=== PATIENT | female | born 2000 | race Caucasian/White ===

== ENCOUNTER 2025-02-20 18:28 | Emergency (ER) | payer BC, SELFPAY ==
--- NOTE | ~2025-02-20 | XR_ITS ---
EXAMINATION: XR chest 2V Exam Date/Time: 02/20/2025 18:55 CDT HISTORY: elevated heart rate Comparison: 09/12/2004. RESULT: Lines, tubes, and devices: None. Lungs and pleura: Clear. Cardiomediastinal silhouette: Stable. Other: No acute osseous or upper abdominal finding. IMPRESSION: No acute cardiopulmonary process. Reviewed, dictated and finalized at location K.
--- NOTE | ~2025-02-20 | CT_ITS ---
EXAMINATION: CT abdomen pelvis w con DATE: 02/20/2025 21:48 INDICATION: vomiting/diarrhea TECHNIQUE: Computed tomography (CT) of the abdomen and pelvis was performed with 100 mL Omnipaque-350 intravenous contrast. Automated exposure control and iterative reconstruction technique were employe d. The dose-length product was 294.34 mGy-cm. COMPARISON: 01/29/2017. FINDINGS: Lower thorax: Unremarkable Liver: Normal. Biliary/Gallbladder: Gallbladder is normal. No bile duct dilation. Pancreas: No mass or duct dilation. Spleen: Normal. Adrenals:No mass. Kidneys: No suspicious mass, obstructing stone, or hydronephrosis. Punctate nonobstructing right lowe r pole calcifications GI tract: Mild distal esophageal wall edema. Fluid-filled colon. No small or large bowel dilation. Hy peremia of the mid and distal appendiceal wall, without dilation or significant surrounding inflammat ory change. Mesentery/Peritoneum: No ascites, mass, or free air. Retroperitoneum: No mass. Pelvis: Pelvic organs are within normal limits. Soft Tissues: Soft tissues and body wall unremarkable. Bones: No acute osseous finding. IMPRESSION: Mild esophagitis. Hyperemia of the appendix, which could represent mild/early appendicitis in the appropriate clinical context. Fluid-filled colon as can be seen with diarrheal illness. Reviewed, dictated and finalized at location K.
[2025-02-20 18:33] VITALS: BP 114/74; PULSE 140; RESP 18; TEMP 36.2; O2SAT 100
--- NOTE | 2025-02-20 18:39 | ECG_ITS ---
Test Date: 2025-02-20 20:23:34 Measurements Intervals Benedict Rate: 121 P: 50 SC: 140 QRS: 52 QRSD: 68 T: 29 QT: 294 QTc: 418 Interpretive Statements SINUS TACHYCARDIA NONSPECIFIC T-WAVE ABNORMALITY ABNORMAL RHYTHM ECG No previous ECG available for comparison Electronically Signed On 02-21-2025 16:02:30 CDT by Arias Hendrickson M.D.
--- NOTE | 2025-02-20 18:40 | ED_ITS ---
HPI - Nausea/Vomiting/Diarrhea General Chief complaint: Nausea/Vomiting/Diarrhea <Chela Bean APRN - Last Filed: 02/20/25 18:42> Stated complaint: vomiting, diarrhea <Chela Bean APRN - Last Filed: 02/20/25 18:42> Time Seen by Provider: 02/20/25 18:40 <Chela Bean APRN - Last Filed: 02/20/25 18:42> Focused HPI: Patient is a 24-year-old female who presents to the ER with a one-day history of vomiting, diarrhea, chills. She denies any recent sick contacts. Patient denies any pertinent medical history relevant to this ER visit. She is very tachycardic upon time of examination. GENERAL: Well-appearing, well-nourished, and in mild distress d/t nausea. HEAD: Normocephalic, atraumatic. CHEST: Clear to auscultation. ?No respiratory distress. HEART: Tachycardia and rhythm.? NEURO: ?Alert and oriented x3. Patient screened in triage and initial orders placed.? ?Additional care and disposition to be based upon?diagnostic testing and treatment. <Chela Bean APRN - Last Filed: 02/20/25 18:42> History of Present Illness HPI Narrative: Agree with HPI. Sudden onset diarrheal illness with vomiting. Works at a [employer] as a nurse. <Ivan Bean MD - Last Filed: 02/20/25 23:01> Related Data Allergies/Adverse reactions: Allergies Allergy/AdvReac Type Severity Reaction Status Date / Time NKDA Allergy Mild Unknown Uncoded 02/20/25 18:29 <Chela Bean APRN - Last Filed: 02/20/25 18:42> Review of Systems 2 Review of Systems: All systems reviewed & are unremarkable except as noted in HPI and below <Ivan Bean MD - Last Filed: 02/20/25 23:01> Constitutional: Constitutional: Reports no additional constitutional complaints <Ivan Bean MD - Last Filed: 02/20/25 23:01> Cardiovascular: Cardiovascular: Reports no additional cardiovascular complaints <Ivan Bean MD - Last Filed: 02/20/25 23:01> Respiratory: Respiratory: Reports no additional respiratory complaints < Ivan Bean MD - Last Filed: 02/20/25 23:01> Gastrointestinal: Gastrointestinal: Reports no additional gastrointestinal complaints <Ivan Bean MD - Last Filed: 02/20/25 23:01> PMFSH Past Medical History Medical History: Medical History (Updated 02/20/25 @ 22:58 by Ivan Bean MD) Healthy female adult <Chela Bean, EXTENSION SERVICE AGENT - Last Filed: 02/20/25 18:42> Surgical History Surgical History: Surgical History (Updated 02/20/25 @ 22:55 by Ivan Bean MD) No pertinent past surgical history <Chela Bean APRN - Last Filed: 02/20/25 18:42> Exam 2 Narrative: GENERAL: Ill-appearing, well-nourished, and in no acute distress. HEAD: Normocephalic, atraumatic. ENT: Mucous membranes moist. CHEST: Clear to auscultation. No respiratory distress. HEART: Tachycardic regular. Normal peripheral pulses. ABDOMEN: Soft, nontender, nondistended. EXTREMITIES: Normal range of motion. No edema. SKIN: Warm, dry, no rash. NEURO: Alert and oriented x3. PSYCH: Normal mood and affect. <Ivan Bean MD - Last Filed: 02/20/25 23:01> Course Course Emergency Course: Patient looks much better after IV fluid. Still with some sinus tachycardia. Repeat exam the abdomen is soft nontender. No right lower quadrant tenderness. Discussed CT imaging as well as labs. Offered admission for observation but patient is feeling better and feels comfortable going home and observing to see if her symptoms worsen. <Ivan Bean MD - Last Filed: 02/20/25 23:01> Vital Signs Vital signs: Vital Signs Temperature 97.2 F L 02/20/25 18:33 Pulse Rate 140 H 02/20/25 18:33 Respiratory Rate 18 02/20/25 18:33 Blood Pressure 114/74 02/20/25 18:33 Pulse Oximetry 100 02/20/25 18:33 Oxygen Delivery Room Air 02/20/25 18:33 Temperature 97.4 F L 02/20/25 19:57 Pulse Rate 115 H 02/20/25 21:33 Respiratory Rate 20 02/20/25 21:33 Blood Pressure 117/72 02/20/25 21:33 Pulse Oximetry 100 02/20/25 21:33 Oxygen Delivery Room Air 02/20/25 18:33 <Chela Bean APRN - Last Filed: 02/20/25 18:42> Vital Signs Temperature 97.2 F L 02/20/25 18:33 Pulse Rate 140 H 02/20/25 18:33 Respiratory Rate 18 02/20/25 18:33 Blood Pressure 114/74 02/20/25 18:33 Pulse Oximetry 100 02/20/25 18:33 Oxygen Delivery Room Air 02/20/25 18:33 Temperature 97.4 F L 02/20/25 19:57 Pulse Rate 115 H 02/20/25 21:33 Respiratory Rate 20 02/20/25 21:33 Blood Pressure 117/72 02/20/25 21:33 Pulse Oximetry 100 02/20/25 21:33 Oxygen Delivery Room Air 02/20/25 18:33 <Ivan Bean MD - Last Filed: 02/20/25 23:01> MDM - Nausea/Vomiting/Diarrhea Lab Data Result diagrams: 02/20/25 19:33 02/20/25 19:33 <Chela Bean APRN - Last Filed: 02/20/25 18:42> Labs: Lab Results 02/20/25 02/20/25 02/20/25 Range/Units 19:33 21:13 21:14 WBC 21.0 H (4.5-10.0) K/mm3 RBC 5.81 H (4.2-5.4) M/mm3 Hgb 17.9 H (12.0-15.0) g/dL Hct 53.0 H (37.0-47.0) % MCV 91.2 (80-100) fl MCH 30.8 (26-34) pg MCHC 33.8 (32-36) g/dl RDW 12.5 (11.5-14.5) % Plt Count 360 (150-375) k/mm3 MPV 10.2 (7.4-10.4) fl Immature Gran % (Auto) Not Reportable Neut % (Auto) Not Reportable Lymph % (Auto) Not Reportable [place] % (Auto) Not Reportable Eos % (Auto) Not Reportable Baso % (Auto) Not Reportable Lymph # (Auto) Not Reportable [place] # (Auto) Not Reportable Eos # (Auto) Not Reportable Baso # (Auto) Not Reportable Abs Immat Gran (auto) Not Reportable Absolute Neuts (auto) Not Reportable Absolute Nucleated RBC Not Reportable Total Counted 100 Neutrophils % (Manual) 90 H (46-73) % Band Neutrophils % 3 (0-6) % Lymphocytes % (Manual) 3.0 L (18-44) % Monocytes % (Manual) 4 (3-9) % Nucleated RBC % Not Reportable Abs Neuts (Manual) 19.53 H (1.7-7.2) K/mm3 Abs Lymphs (Manual) 0.63 L (1.1-4.5) K/mm3 Abs Monocytes (Manual) 0.84 (0.1-0.90) K/mm3 Platelet Estimate Adequate (Adequate) Clumped Platelets Present Schistocytes None seen PT 13.1 (11.1-14.7) Seconds INR 0.9 APTT 26.3 (22.3-36.8) Seconds Sodium 141 (137-145) mmol/L Potassium 3.9 (3.4-5.0) mmol/L Chloride 101 (98-107) mmol/L Carbon Dioxide 19 L (22-30) mmol/L Anion Gap 21 H (4-12) mmol/L BUN 15 (7-17) mg/dL Creatinine 0.97 (0.7-1.0) mg/dL Estim Creat Clear Calc 65 ml/min Estimated GFR > 60 (59 - ) Glucose 115 H (65-110) mg/dL Lactic Acid 2.3 H (0.7-2.0) mmol/L Calcium 11.0 H (8.4-10.2) mg/dL Total Bilirubin 1.2 (0.2-1.3) mg/dL AST 28 (14-36) U/L ALT 30 (6-35) U/L Alkaline Phosphatase 96 (38-126) U/L Troponin I < 0.012 (0.000-0.034) ng/mL C-Reactive Protein 0.5 (<1.0) mg/dL Total Protein 11.0 H (6.3-8.2) g/dL Albumin 5.9 H (3.5-5.1) g/dL Urine Color Yellow (Yellow) Urine Appearance Clear (Clear) Urine pH 5.5 (5.0-9.0) Ur Specific [place] 1.019 (1.001-1.035) Urine Protein 1+ H (Negative) mg/dL Urine Glucose (UA) Negative (Negative) mg/dL Urine Ketones 1+ H (Negative) mg/dL Ur Blood (Man) Negative (Negative) Urine Nitrate Negative (Negative) Urine Bilirubin Negative (Negative) Urine Urobilinogen 0.2 (<2.0) mg/dL Leukocyte Esterase Rfl Negative (Negative) MYRANDA/UL Urine RBC 0-2 (0-2) /hpf Urine WBC 0-5 (0-3) /hpf Ur Squamous Epith Cells None seen (Few) /hpf Urine Bacteria None seen /hpf Urine Casts >20 Hyaline Casts Present (None) /lpf POC Urine HCG, Qual Negative (Negative) Influenza A (RT-PCR) Negative (Negative) Influenza B (RT-PCR) Negative (Negative) RSV (RT-PCR) Negative (Negative) SARS-CoV-2 RNA (RT-PCR) Negative (Negative) <Chela Bean, EXTENSION SERVICE AGENT - Last Filed: 02/20/25 18:42> Lab Results 02/20/25 02/20/25 02/20/25 Range/Units 19:33 21:13 21:14 WBC 21.0 H (4.5-10.0) K/mm3 RBC 5.81 H (4.2-5.4) M/mm3 Hgb 17.9 H (12.0-15.0) g/dL Hct 53.0 H (37.0-47.0) % MCV 91.2 (80-100) fl MCH 30.8 (26-34) pg MCHC 33.8 (32-36) g/dl RDW 12.5 (11.5-14.5) % Plt Count 360 (150-375) k/mm3 MPV 10.2 (7.4-10.4) fl Immature Gran % (Auto) Not Reportable Neut % (Auto) Not Reportable Lymph % (Auto) Not Reportable [place] % (Auto) Not Reportable Eos % (Auto) Not Reportable Baso % (Auto) Not Reportable Lymph # (Auto) Not Reportable [place] # (Auto) Not Reportable Eos # (Auto) Not Reportable Baso # (Auto) Not Reportable Abs Immat Gran (auto) Not Reportable Absolute Neuts (auto) Not Reportable Absolute Nucleated RBC Not Reportable Total Counted 100 Neutrophils % (Manual) 90 H (46-73) % Band Neutrophils % 3 (0-6) % Lymphocytes % (Manual) 3.0 L (18-44) % Monocytes % (Manual) 4 (3-9) % Nucleated RBC % Not Reportable Abs Neuts (Manual) 19.53 H (1.7-7.2) K/mm3 Abs Lymphs (Manual) 0.63 L (1.1-4.5) K/mm3 Abs Monocytes (Manual) 0.84 (0.1-0.90) K/mm3 Platelet Estimate Adequate (Adequate) Clumped Platelets Present Schistocytes None seen PT 13.1 (11.1-14.7) Seconds INR 0.9 APTT 26.3 (22.3-36.8) Seconds Sodium 141 (137-145) mmol/L Potassium 3.9 (3.4-5.0) mmol/L Chloride 101 (98-107) mmol/L Carbon Dioxide 19 L (22-30) mmol/L Anion Gap 21 H (4-12) mmol/L BUN 15 (7-17) mg/dL Creatinine 0.97 (0.7-1.0) mg/dL Estim Creat Clear Calc 65 ml/min Estimated GFR > 60 (59 - ) Glucose 115 H (65-110) mg/dL Lactic Acid 2.3 H (0.7-2.0) mmol/L Calcium 11.0 H (8.4-10.2) mg/dL Total Bilirubin 1.2 (0.2-1.3) mg/dL AST 28 (14-36) U/L ALT 30 (6-35) U/L Alkaline Phosphatase 96 (38-126) U/L Troponin I < 0.012 (0.000-0.034) ng/mL C-Reactive Protein 0.5 (<1.0) mg/dL Total Protein 11.0 H (6.3-8.2) g/dL Albumin 5.9 H (3.5-5.1) g/dL Urine Color Yellow (Yellow) Urine Appearance Clear (Clear) Urine pH 5.5 (5.0-9.0) Ur Specific [place] 1.019 (1.001-1.035) Urine Protein 1+ H (Negative) mg/dL Urine Glucose (UA) Negative (Negative) mg/dL Urine Ketones 1+ H (Negative) mg/dL Ur Blood (Man) Negative (Negative) Urine Nitrate Negative (Negative) Urine Bilirubin Negative (Negative) Urine Urobilinogen 0.2 (<2.0) mg/dL Leukocyte Esterase Rfl Negative (Negative) MYRANDA/UL Urine RBC 0-2 (0-2) /hpf Urine WBC 0-5 (0-3) /hpf Ur Squamous Epith Cells None seen (Few) /hpf Urine Bacteria None seen /hpf Urine Casts >20 Hyaline Casts Present (None) /lpf POC Urine HCG, Qual Negative (Negative) Influenza A (RT-PCR) Negative (Negative) Influenza B (RT-PCR) Negative (Negative) RSV (RT-PCR) Negative (Negative) SARS-CoV-2 RNA (RT-PCR) Negative (Negative) <Ivan Bean MD - Last Filed: 02/20/25 23:01> Imaging Data Radiologist's impression: ITS Impressions Chest X-Ray 02/20/25 19:56 IMPRESSION: No acute cardiopulmonary process. Abdomen/Pelvis CT 02/20/25 22:21 IMPRESSION: Mild esophagitis. Hyperemia of the appendix, which could represent mild/early appendicitis in the appropriate clinical context. Fluid-filled colon as can be seen with diarrheal illness. <Ivan Bean MD - Last Filed: 02/20/25 23:01> ECG Data EKG #1: ECG completion date: 02/20/25 <Ivan Bean MD - Last Filed: 02/20/25 23:01> ECG completion time: 20:23 <Ivan Bean MD - Last Filed: 02/20/25 23:01> EKG Interpretation: tachycardia (121), sinus rhythm, no ectopy, normal QRS and normal QT <Ivan Bean MD - Last Filed: 02/20/25 23:01> Discharge Plan Discharge Clinical Impression: Gastroenteritis <Chela Bean APRN - Last Filed: 02/20/25 18:42> Patient Disposition: Home, Self-Care <Chela Bean APRN - Last Filed: 02/20/25 18:42> Condition: Stable <Chela Bean APRN - Last Filed: 02/20/25 18:42> Instructions: Gastroenteritis (ED) <Chela Bean APRN - Last Filed: 02/20/25 18:42> Additional Instructions: Please drink plenty of fluids at home. Return to the emergency department if you develop high fevers, have persistent severe abdominal pain, or have bloody stools or vomit, as these could be signs of a more serious medical emergency. Return to the emergency department if you are unable to keep down liquids because of severe nausea/vomiting. Additionally if you develop pain in the right lower quadrant of your abdomen you should return for evaluation possible appendicitis. <Chela Bean APRN - Last Filed: 02/20/25 18:42> Patient Language: Russian <Chela Bean APRN - Last Filed: 02/20/25 18:42> Prescriptions: New ondansetron 4 mg tablet,disintegrating 4 mg PO Q6H PRN (Reason: nausea and vomiting) Qty: 10 0RF <Chela Bean APRN - Last Filed: 02/20/25 18:42> Follow-up/Referrals: UNKNOWN,DOCTOR [Primary Care Provider] - 1 Week <Chela Bean APRN - Last Filed: 02/20/25 18:42>
--- OUTSIDE RECORDS SUMMARY | 2025-02-20 19:06 | XMS_ITS | Clinical Summary ---
Author Organization [facility] Address [address] [place] [address] Care Team Providers Care In Home Baby Sitter Name Role Phone Juwan Wilks MD Unavailable [phone] Juwan Wilks MD Primary Care Provider [phone] Source Comments [facility],non-owned Affiliates and Associated Physician Practices is amultiple site organization consisting of ambulatory clinics and hospital sitesin [place], [place], [place] and [place]. This disclosure is being madepursuant to the Care Everywhere program and may not contain all information available regarding this patient. Last updated 18.[facility] Allergies No known active allergies Medications * Be aware that medications may not be up to date on this document. Alwaysverify current medications with the patient. Medication Sig Dispensed Refills Start Date End Date Status TRINESSA, 28, tablet TAKE 1 TABLET BY MOUTH EVERY DAY 28 Tab 6 01/19/2017 Active ketoconazole (NIZORAL) 2 % cream Apply 2 Squirts to affected area 3 times daily 0 06/06/2017 Active TRI-SPRINTEC tablet TAKE 1 TABLET BY MOUTH EVERY DAY 28 tablet 11 12/16/2018 Active Active Problems Problem Noted Date Diagnosed Date Herpes simplex vulvovaginitis 2017 Overview (03/18/2017): Valtrex prn Nephrolithiasis 02/24/2017 Overview (03/18/2017): 01/29/10 Right. Extracorporeal shock wave lithotripsy [facility]. Right ureteral stent. 03/07/10 [facility] : Cystoscopy with removal of stint 01/29/17 [facility]: Three calyceal stones right kidney 03/09/17 Referred to Urology Well child visit 09/09/2011 Overview (11/02/2017): 11 yo 11/09/11 14 yo 08/15/14 16 yo 09/01/16 17 yo 11/02/17 Resolved Problems Problem Noted Date Diagnosed Date Resolved Date UTI (urinary tract infection) 02/24/2017 03/10/2017 Overview (02/24/2017): 11/01/15 TMP/SMX (E. Coli) 01/03/17 Macrobid 01/29/17 TMP/SMX (E. Coli) - [facility] 02/24/17 Macrobid Acute pharyngitis 09/09/2011 02/24/2017 GERD (gastroesophageal reflux disease) 01/08/2010 02/24/2017 Overview (01/14/2010): 01/08/10 Prevacid 15 mg qd Immunizations Name Administration Dates Next Due DTaP VACCINE IM (6wk-6yrs) 06/27/2005,,2000,07/13,2000 HEP A PEDS 2 DOSE 06/25/2017 HEP B VACCINE, PED/ADOL 06/29/2001,2000, HIB BOOSTER 06/29/2001,2000,2000 Human Papilloma Virus [place] lent Vaccine 11/02/2017,06/25/2017 INFLUENZA VACCINE, QUADR. (F LUZONE; FLULAVAL; FLUARIX; AFLURIA QUADRIVALENT; 6MO+), 0.5 ML (IIV4) 11/02/2017 MENINGOCOCCAL CONJUGATE (MCV4P) 09/01/2016 MMR 06/27/2005,04/06/2001 PNEUMOCOCCAL CONJ, PEDS 04/06/2001 POLIO IPV 07/24/2004, 1,2000,05/11 PPD 07/24/2004 TDAP (7yrs+) 09/09/2011 VARICELLA 09/09/2011,08/23/2001 Social History Tobacco Use Types Packs/Day Years Used Date Smoking Tobacco: Never Smokeless Tobacco: Never Alcohol Use Standard Drinks/Week Comments No 0 (1 standard drink = 0.6 oz pur e alcohol) Sex and Gender Information Value Date Recorded Sex Assigned at Not on file Gender Identity Not on file Sexual Orientation Not on file Last Filed Vital Signs Vital Sign Reading Time Taken Comments Blood Pressure 110/60 11/02/2017 3:35 PM RESERVATION AGENT Pulse 112 02/26/2017 11:47 AM CDT Temperature 38.1 C (100.5 F) 07/22/2018 2:16 PM CDT Respiratory Rate 24 02/26/2017 11:47 AM CDT Oxygen Saturation 97% 02/26/2017 11:47 AM CDT Inhaled Oxygen Concentration - - Weight 48.3 kg (106 lb 6.4 oz) 07/22/2018 2:16 P M CDT Height 159.4 cm (5' 2.75 ) 11/02/2017 3:35 PM CS T Body Mass Index - - Plan of Treatment Health Maintenance Due Date Last Done Comments PAP SMEAR 2000 HIV SCREENING 2015 HPV VACCINE (3 - 3-dose series) 01/25/2018 11/02/2017, 06/25/2017 CHLAMYDIA/GONORRHEA SCREENING 02/26/2018 02/26/2017 HEPATITIS C SCREENING 03/05/2018 DTAP/TDAP/TD VACCINES (7 - Td or Tdap) 09/09/2021 09/09/2011, 06/27/2005, 06/29/2001, Additional history exists COVID-19 VACCINE ( season) 2024 INFLUENZA VACCINE (#1) 2024 11/02/2017 DEPRESSION SCREENING 11/30/2024 ZOSTER VACCINE (1 of 2) 2050 PNEUMOCOCCAL VACCINE Aged Out 04/06/2001 No long er eligible based on patient's age to complete this topic HEPATITIS B VACCINE Completed 06/29/2001, 2000, 2000 HIB VACCINE Completed 06/29/2001, 06/30, 2000 MENINGOCOCCAL GROUPS A/C/Y/W VACCINE Completed 09/01/2016 MENINGOCOCCAL (Group B) VACCINE SHARED DECISION-MAKING Aged Out No longer eligible based on patient's age to complete this topic Goals Goal Patient Goal Type Associated Problems Recent Progress Patient-Stated? Author Use safety retraint in car Lifestyle On track( 017 4:16 PM RESERVATION AGENT) No Nanci Martinez MA Procedures Procedure Name Priority Date/Time Associated Diagnosis Comments CHLAMYDIA + GC AMPLIFIED PROBE STAT 02/26/2017 11:15 AM CDT from Last 3 Months or Most Recently Relevant to Health Maintenance Results * CHLAMYDIA + GC AMPLIFIED PROBE (02/26/2017 11:15 AM CDT) Chlamydia Amplified Probe Negative Negative 02/27/2017 11:40 AM CDT [facility] GC Amplified Probe Negative Negative 02/27/2017 11:40 AM CDT [facility] Microbiology URINE / Unknown 02/26/2017 1 1:15 AM CDT 02/26/2017 11:22 AM CDT Narrative [facility] - 02/27/2017 11:40 AM CDT This test was developed and its performance characteristics determined by the [facility], [facility]. Female urine specimens tested by the [facility] have not been cleared or approved by the U.S. Food and Drug Administration (FDA). The laboratory is regulated under the Clinical Laboratory Improvement Amendments (CLIA) as qualified to perform high-complexity testing. This test is used for clinical purposes. It should not be regarded as investigational or for research. Results based on detection/no detection of ribosomal RNA by amplified method. Adrian Jimenez MD LAB - MICROBIOLOGY ORDERABLES [facility] [address] [place] [address], [facility] [phone] from Last 3 Months or Most Recently Relevant to Health Maintenance Care Teams In Home Baby Sitter Relationship Specialty Start Date End Date Juwan Wilks MD PCP - Pediatrics 01/08/10 Juwan Wilks MD [address] [address] PCP - General 02/05/10
--- OUTSIDE RECORDS SUMMARY | 2025-02-20 19:06 | XMS_ITS | Clinical Summary ---
Author Organization [facility] Address [address] [place] [address] Care Team Providers Care Pediatric Rn Name Role Phone Sohail [place] MD Primary Care Provider [phone] Allergies No known active allergies Medications No known medications Active Problems No known active problems Immunizations Name Administration Dates Next Due MODERNA COVID-19 (12+) MRNA, LNP-S, PF, 100 MCG/ 0.5 ML DOSE 01/10/2021,12/13/2020 Family History Medical History Relation Comments No Known Problems Maternal Aunt No Known Problems Maternal Grandmother No Known Problems Maternal Uncle No Known Problems Paternal Aunt No Known Problems Paternal Grandfather Breast Cancer Paternal Grandmother No Known Problems Paternal Uncle Relation Status Comments Father Alive Maternal Aunt Maternal Grandmother Maternal Uncle Mother Alive Paternal Aunt Paternal Grandfather Paternal Grandmother Paternal Uncle Social History Tobacco Use Types Packs/Day Years Used Date Smoking Tobacco: Never Smokeless Tobacco: Never Tobacco Cessation:Counseling Given: No Alcohol Use Standard Drinks/Week Comments Yes 0 (1 standard drink = 0.6 oz pur e alcohol) occasional AUDIT-C Answer Date Recorded Q1: How often do you have a drink containing alc ohol? Never 03/14/2021 Average Number of Drinks Not on file 021 Frequency of Binge Drinking Not on file 02/28 PHQ-2 Answer Date Recorded PHQ-2 Score - If the patient scores above 3, please move on to questions 3-9 0 05/14/2021 Comments No Sex and Gender Information Value Date Recorded Sex Assigned at Not on file Legal Sex Female 12:09 PM COPY HOLDER Gender Identity Not on file Sexual Orientation Not on file Last Filed Vital Signs Vital Sign Reading Time Taken Comments Blood Pressure 119/70 10/19/2022 12:19 PM COPY HOLDER Pulse 102 10/19/2022 12:19 PM COPY HOLDER Temperature 36.6 C (97.9 F) 10/19/2022 12:19 PM COPY HOLDER Respiratory Rate 16 10/19/2022 12:19 PM COPY HOLDER Oxygen Saturation 98% 10/19/2022 12:19 PM COPY HOLDER Inhaled Oxygen Concentration - - Weight 52.2 kg (115 lb) 10/19/2022 12:19 PM COPY HOLDER Height 160 cm (5' 3 ) 10/19/2022 12:19 PM COPY HOLDER Body Mass Index 20.37 10/19/2022 12:19 PM COPY HOLDER Plan of Treatment Health Maintenance Due Date Last Done Comments Cervical Cancer Screening Pap Smear (Age 21 to 29) Every 3 Years 2000 Cervical Cancer Screening 2000 Annual Physical 2003 HPV Vaccines (3 - 3-dose series) 01/25/2018 11/02/2017, 06/25/2017 Hepatitis C 2018 DTaP, Tdap and Td Vaccines (7 - Td or Tdap) 09/09/2021 09/09/2011, 06/27/2005, 06/29/2001, Additional history exists COVID-19 Vaccine ( season) 2024 01/10/2021, 12/13/2020 Influenza Adult (#1) 2024 08/28/2020, 11/02/2017, 08/02/2017 Hepatitis B Vaccines Completed 06/29/2001, 2000, 2000 Meningococcal Vaccine Completed 09/01/2016 Meningococcal B Vaccine Aged Out No l onger eligible based on patient's age to complete this topic Pneumococcal Vaccine: Pediatrics (0 to 5 Years) and At-Risk Patients (6 to 64 Years) Aged Out No longer eligible based on patient's age to complete this topic RSV Immunizations Under 20 Months Aged Out No longer eligible based on patient's age to complete this topic Insurance [address] [address] Care Teams Pediatric Rn Relationship Specialty Start Date End Date Sohail [place] MD [address] [place] [address] [place] [address] PCP - General FAMILY PRACTICE 03/21/21
--- OUTSIDE RECORDS SUMMARY | 2025-02-20 19:07 | XMS_ITS | Encounter Summary ---
Author Organization [facility] Address [address] [place] [address] Phone Care Team Providers Care Vegetable Specker Name Role Phone Kaci Nunes Primary Care Provider [phone] Loretta Yanes MD Unavailable [phone] Encounter Details Date Type Department Care Team (Late st Contact Info) Description 10/28/2018 Telephone [facility] [employer] [facility] - [facility] Urology [address] [facility] [address]th [place] [address] [place] [address] Renetta Noble Social History Tobacco Use Types Packs/Day Years Used Date Smoking Tobacco: Never Smokeless Tobacco: Never Alcohol Use Standard Drinks/Week Comments No 0 (1 standard drink = 0.6 oz pur e alcohol) Comments Unknown Sex and Gender Information Value Date Recorded Sex Assigned at Not on file Legal Sex Female 7:19 PM CDT Gender Identity Not on file Sexual Orientation Not on file documented as of this encounter Plan of Treatment Not on file documented as of this encounter Visit Diagnoses Not on filedocumented in this encounter Care Teams Vegetable Specker Relationship Specialty Start Date End Date Kaci Nunes PA [address] [place] [id number] PCP - General Gastroenterology 08/18/18 Loretta Yanes MD [address] [facility] [place] [address] 08/18/18 documented as of this encounter
--- OUTSIDE RECORDS SUMMARY | 2025-02-20 19:07 | XMS_ITS | Clinical Summary ---
Author Organization [facility] Address [address] [place] [address] Care Team Providers Care Wood Carver Hand Name Role Phone Kaci Nunes Primary Care Provider [phone] Loretta Yanes MD Unavailable Allergies No known active allergies Medications norgestimate-et hinyl estradiol (OPF-EZ-DZRXZLX C ORAL) Take 1 tablet by mouth nightly. control Active acetaminophen (TYLENOL) 500 mg tablet Take 1 tablet (500 mg total) by mouth every 6 (six) hours as needed for pain. 8 Active Additional Information Patient not taking.Reported on 04/10/2021 ibuprofen (ADVIL,MOTRIN) 600 mg tablet Take 1 tablet (600 mg total) by mouth every 6 (six) hours as needed for pain. 8 Active Additional Information Patient not taking.Reported on 04/10/2021 oxyCODONE (ROXICODONE) 5 mg immediate release tabletIndicatio ns:Pain Take 1 tablet (5 mg total) by mouth every 6 (six) hours as needed for pain. 10 tablet 8 Active Additional Information Patient not taking.Reported on 04/10/2021 tamsulosin (FLOMAX) 0.4 mg extended release capsule Take 1 capsule (0.4 mg total) by mouth daily. For stent pain 10 capsule 1 8 Active Additional Information Patient not taking.Reported on 04/10/2021 valACYclovir (VALTREX) 500 mg tablet Take 500 mg by mouth daily 1 Active Lo Loestrin Fe 1 mg-10 mcg (24)/10 mcg (2) tablet Take 1 tablet by mouth daily 1 Active cephalexin (KEFLEX) 500 mg capsule 1 Active Active Problems Problem Noted Date Diagnosed Date Nephrolithiasis 11/02/2018 Overview (11/02/2018): Added automatically from request for surgery [id number] Surgical History Surgery Date Site/Laterality Comments KIDNEY STONE SURGERY 2018,(x2), 2017 & 2010 Right 4 surgeries since 2009 Medical History Medical History Date Comments Kidney stone Right Family History Medical History Relation Name Comments No Known Problems Father Cancer Maternal Grandmother No Known Problems Mother Nephrolithiasis Paternal Grandmother Relation Name Status Comments Father Maternal Grandmother Mother Paternal Grandmother Social History Tobacco Use Types Packs/Day Years Used Date Smoking Tobacco: Never Smokeless Tobacco: Never Alcohol Use Standard Drinks/Week Comments No 0 (1 standard drink = 0.6 oz pur e alcohol) Comments No Sex and Gender Information Value Date Recorded Sex Assigned at Not on file Legal Sex Female 7:19 PM CDT Gender Identity Not on file Sexual Orientation Not on file Obstetrics History Comments LMP: 09/2018 Last Filed Vital Signs Vital Sign Reading Time Taken Comments Blood Pressure 104/64 04/10/2021 6:43 PM CDT Pulse 81 04/10/2021 6:43 PM CDT Temperature 36.8 C (98.2 F) 04/10/2021 6:43 PM CDT Respiratory Rate 16 04/10/2021 6:43 PM CDT Oxygen Saturation 99% 04/10/2021 6:43 PM CDT Inhaled Oxygen Concentration - - Weight 52.2 kg (115 lb) 04/10/2021 6:43 PM CDT Height 160 cm (5' 3 ) 04/10/2021 6:43 PM CDT Body Mass Index 20.37 04/10/2021 6:43 PM CDT Plan of Treatment Not on file Medical Devices Explanted Type Area Openstack Cloud Consulting Architect Device Identifier Shelf Expiration Date Model / Serial / Lot [employer] Garry [id number] 4.8fr 22cm Large Inner Lumen Low Profile Bladder Elder Taper Tip Latex Free - [id number] Implanted:Qty: 1 on 11/16/2018 by Connie Perez MD at [facility] Explanted:Qty: 1 on 11/25/2018 by Connie Perez MD Stent Right: Ureter [employer] Garry [id number] 07/04/2021 [id number] / / [id number] Insurance ANTHEM ACCESS [employer] OOS Care Teams Wood Carver Hand Relationship Specialty Start Date End Date Kaci Nunes PA [address] [place] [address] PCP - General Gastroenterology 08/18/18 Loretta Yanes MD [address] [place] [address] 08/18/18
--- OUTSIDE RECORDS SUMMARY | 2025-02-20 19:07 | XMS_ITS | Clinical Summary ---
Author Organization [facility] Address [address] [place] [address] Phone Care Team Providers Care Sash Repairer Name Role Phone Sohail Duarte MD Primary Care Provider Allergies No known active allergies Medications TRINESSA, 28, 0.18/0.215/0.25 mg-35 mcg (28) tablet TK 1 T PO QD 11 02/15/2017 Active Active Problems Problem Noted Date Diagnosed Date Right kidney stone 03/13/2017 Constipation 03/13/2017 Immunizations Immunization Administration Dates Next Due Influenza Seasonal Unspecified Formulation IM Family History Medical History Relation Name Comments Healthy Father Healthy Mother Healthy Sister Relation Name Status Comments Father Alive Mother Alive Sister Alive Social History Tobacco Use Types Packs/Day Years Used Date Smoking Tobacco: Never Smokeless Tobacco: Never Alcohol Use Standard Drinks/Week Comments No 0 (1 standard drink = 0.6 oz pur e alcohol) Comments No Sex and Gender Information Value Date Recorded Sex Assigned at Not on file Legal Sex Female 2:36 PM CDT Gender Identity Not on file Sexual Orientation Not on file Last Filed Vital Signs Vital Sign Reading Time Taken Comments Blood Pressure 114/74 01/23/2020 1:05 PM PREFORMS LAMINATOR Pulse 97 01/23/2020 1:05 PM PREFORMS LAMINATOR Temperature 36.6 C (97.8 F) 01/23/2020 1:05 PM PREFORMS LAMINATOR Respiratory Rate 16 01/23/2020 1:05 PM PREFORMS LAMINATOR Oxygen Saturation 100% 01/23/2020 1:05 PM PREFORMS LAMINATOR Inhaled Oxygen Concentration - - Weight 50.3 kg (111 lb) 01/23/2020 1:05 PM PREFORMS LAMINATOR Height 160 cm (5' 3 ) 01/23/2020 1:05 PM PREFORMS LAMINATOR Body Mass Index 19.66 01/23/2020 1:05 PM PREFORMS LAMINATOR Plan of Treatment Health Maintenance Due Date Last Done Comments HPV VACCINES (3 - 3-dose series) 01/25/2018 11/02/2017, 06/25/2017 CERVICAL CANCER SCREENING 2021 PAP SMEAR 2021 PAP SMEAR 2021 DTAP/TDAP/TD VACCINES (7 - Td or Tdap) 09/09/2021 09/09/2011, 06/27/2005, 06/29/2001, Additional history exists INFLUENZA VACCINE (#1) 2024 11/02/2017, 2016 HEPATITIS B VACCINES Completed 06/29/2001, 2000, 2000 PNEUMOCOCCAL VACCINE 0-49 YEARS Aged Out No longer eligible based on patient's age to complete this topic Medical Devices Explanted Type Area Crook Operator Device Identifier Shelf Expiration Date Model / Serial / Lot Stent Uret Unvfsl [facility]-522-R [id number] - [id number] Implanted:Qty : 1 on 01/06/2018 by Sushant Villavicencio MD at [facility] Explanted:Qty : 1 on 01/20/2018 by Sushant Villavicencio MD at [facility] Stent Right: Ureter COOK- UROLOGY [id number] 08/26/2019 [id number] / / [id number] Stent Uret Unvfsl [facility]-522-R [id number] - [id number] Implanted:Qty : 1 on 01/20/2018 by Sushant Villavicencio MD at [facility] Explanted:Qty : 1 on 01/27/2018 by Sushant Villavicencio MD at [facility] Stent Right: Ureter COOK- UROLOGY [id number] 08/14/2020 [id number] / / [id number] Insurance RX [facility] [employer] RX FERRO PLANS (INTERNAL) [facility] Plans [employer] BLUE ACCESS/TRUE BLUE PPO [employer] BLUE ACCESS/TRUE BLUE PPO Advance Directives For more information, please contact: [phone] * Full Code (Latest Code Status on File) Date Activated Date Inactivated Comments 05/18/2018 10:10 AM 05/18/2018 4:55 PM * Full Code Date Activated Date Inactivated Comments 01/27/2018 11:58 AM 01/27/2018 4:25 PM * Full Code Date Activated Date Inactivated Comments 01/20/2018 3:09 PM 01/21/2018 10:39 AM * Full Code Date Activated Date Inactivated Comments 01/20/2018 12:28 PM 01/20/2018 3:09 PM * Full Code Date Activated Date Inactivated Comments 01/06/2018 3:51 PM 01/07/2018 12:28 PM Care Teams Sash Repairer Relationship Specialty Start Date End Date Sohail Duarte MD [address] [place] [address] [place] [address] PCP - General Family Practice 08/16/18
--- OUTSIDE RECORDS SUMMARY | 2025-02-20 19:07 | XMS_ITS | Referral Summary ---
Author Organization [facility] Address [address] [place] [address] Care Team Providers Care Fire Hazard Inspector Name Role Phone Kaci Nunes Primary Care Provider [phone] Loretta Yanes MD Unavailable Allergies No known active allergies Medications norgestimate-et hinyl estradiol (STI-XG-IFJCFLO C ORAL) Take 1 tablet by mouth [...] (11/02/2018): Added automatically from request for surgery [id number] Social History Tobacco Use Types Packs/Day Years [...] on file Medical Devices Explanted Type Area Charge Operator Device Identifier Shelf Expiration Date Model / Serial / Lot [employer] Garry [id number] 4.8fr 22cm Large Inner Lumen Low Profile Bladder Elder Taper Tip Latex Free - [id number] Implanted:Qty: 1 on 11/16/2018 by Connie Perez MD at [facility] Explanted:Qty: 1 on 11/25/2018 by Connie Perez MD Stent Right: Ureter [employer] Garry [id number] 07/04/2021 [id number] / / [id number] Insurance ANTHEM ACCESS BLUE ACCESS OOS Care Teams Fire Hazard Inspector Relationship Specialty Start Date End Date Kaci Nunes PA [address] [place] [id number] PCP - General Gastroenterology 08/18/18 Loretta Yanes MD [address] [place] [address] 08/18/18
[2025-02-20] MEDS: SODIUM CHLORIDE 0.9% IV 1,000 ML 999 ML IV CONT ×2 (19:28→19:29)
[2025-02-20] MEDS: ONDANSETRON INJ 4 MG/2 ML VIAL IV PUSH (19:49)
[2025-02-20 19:54] LABS: Hemoglobin 17.9 g/dL (12.0-15.0); Mean Corpuscular HGB Conc 33.8 g/dl (32-36); Mean Corpuscular Hemoglobin 30.8 pg (26-34); Mean Corpuscular Volume 91.2 fl (80-100); Mean Platelet Volume 10.2 fl (7.4-10.4); Platelet Count Result 360 k/mm3 (150-375); Red Blood Count 5.81 M/mm3 (4.2-5.4); Red Cell Distribution Width 12.5 % (11.5-14.5)
--- OUTSIDE RECORDS SUMMARY | 2025-02-20 19:55 | XMS_ITS | Clinical Summary ---
Author Organization [facility] Address [address] [place] [address] Care Team Providers Care Batter Mixer Helper Name Role Phone Sohail Duarte MD Primary Care Provider [phone] Allergies No known active allergies Medications No [...] on file Legal Sex Female 12:09 PM POCKET SETTER LOCKSTITCH Gender Identity Not on file Sexual Orientation Not on file Last Filed Vital Signs Vital Sign Reading Time Taken Comments Blood Pressure 119/70 10/19/2022 12:19 PM POCKET SETTER LOCKSTITCH Pulse 102 10/19/2022 12:19 PM POCKET SETTER LOCKSTITCH Temperature 36.6 C (97.9 F) 10/19/2022 12:19 PM POCKET SETTER LOCKSTITCH Respiratory Rate 16 10/19/2022 12:19 PM POCKET SETTER LOCKSTITCH Oxygen Saturation 98% 10/19/2022 12:19 PM POCKET SETTER LOCKSTITCH Inhaled Oxygen Concentration - - Weight 52.2 kg (115 lb) 10/19/2022 12:19 PM POCKET SETTER LOCKSTITCH Height 160 cm (5' 3 ) 10/19/2022 12:19 PM POCKET SETTER LOCKSTITCH Body Mass Index 20.37 10/19/2022 12:19 PM POCKET SETTER LOCKSTITCH Plan of Treatment Health Maintenance Due Date [...] patient's age to complete this topic Insurance [address] [place] [address] Care Teams Batter Mixer Helper Relationship Specialty Start Date End Date Sohail Duarte MD [address] [place] [address] [place] [address] PCP - General FAMILY PRACTICE 03/21/21
--- OUTSIDE RECORDS SUMMARY | 2025-02-20 19:55 | XMS_ITS | Clinical Summary ---
Author Organization [facility] Address [address] [place] [address] Care Team Providers Care Watch Hairspring Assembler Name Role Phone Kaci Nunes Primary Care Provider [phone] Loretta Yanes MD Unavailable [phone] Allergies No known active allergies Medications norgestimate-et hinyl estradiol (TMU-XQ-AWAUUDS C ORAL) Take 1 tablet by mouth [...] (11/02/2018): Added automatically from request for surgery [id number] Surgical History Surgery Date Site/Laterality Comments KIDNEY [...] on file Medical Devices Explanted Type Area Provider Relations Advocate Device Identifier Shelf Expiration Date Model / Serial / Lot [employer] Garry [id number] 4.8fr 22cm Large Inner Lumen Low Profile Bladder Elder Taper Tip Latex Free - [id number] Implanted:Qty: 1 on 11/16/2018 by Connie Perez MD at [facility] Explanted:Qty: 1 on 11/25/2018 by Connie Perez MD Stent Right: Ureter [employer] Garry [id number] 07/04/2021 [id number] / / [id number] Insurance ANTHEM ACCESS [employer] OOS Care Teams Watch Hairspring Assembler Relationship Specialty Start Date End Date Kaci Nunes PA [address] [place] [address] PCP - General Gastroenterology 08/18/18 Loretta Yanes MD [address] [place] [address] 08/18/18
--- OUTSIDE RECORDS SUMMARY | 2025-02-20 19:55 | XMS_ITS | Encounter Summary ---
Author Organization [facility] Address [address] [place] [address] Phone Care Team Providers Care Coiled Coil Inspector Name Role Phone Kaci Nunes Primary Care Provider [phone] Loretta Yanes MD Unavailable [phone] Encounter Details Date Type Department Care Team (Late st Contact Info) Description 10/28/2018 Telephone [facility] ([facility]) - [facility] Urology [address] [facility] Advanced Medicine 11th [place] [address] [place] [address] Renetta Noble Social History Tobacco [...] on filedocumented in this encounter Care Teams Coiled Coil Inspector Relationship Specialty Start Date End Date Kaci Nunes PA [address] [place] [address] PCP - General Gastroenterology 08/18/18 Loretta Yanes MD [address] [facility] [place] [address] 08/18/18 documented as of this encounter
--- OUTSIDE RECORDS SUMMARY | 2025-02-20 19:55 | XMS_ITS | Referral Summary ---
Author Organization [facility] Address [address] [place] [address] Care Team Providers Care Public Health Veterinarian Name Role Phone Kaci Nunes Primary Care Provider [phone] Loretta Yanes MD Unavailable [phone] Allergies No known active allergies Medications norgestimate-et hinyl estradiol (GVU-VY-XDFUAWP C ORAL) Take 1 tablet by mouth [...] (11/02/2018): Added automatically from request for surgery [id number] Social History Tobacco Use Types Packs/Day Years [...] on file Medical Devices Explanted Type Area Sewer Separation Designer Device Identifier Shelf Expiration Date Model / Serial / Lot [employer] Garry [id number] 4.8fr 22cm Large Inner Lumen Low Profile Bladder Elder Taper Tip Latex Free - [id number] Implanted:Qty: 1 on 11/16/2018 by Connie Perez MD at [facility] Explanted:Qty: 1 on 11/25/2018 by Connie Perez MD Stent Right: Ureter [employer] Garry [id number] 07/04/2021 [id number] / / [id number] Insurance ANTHEM ACCESS BLUE ACCESS OOS Care Teams Public Health Veterinarian Relationship Specialty Start Date End Date Kaci Nunes PA [address] [place] [id number] PCP - General Gastroenterology 08/18/18 Loretta Yanes MD [address] [place] [address] 08/18/18
--- OUTSIDE RECORDS SUMMARY | 2025-02-20 19:55 | XMS_ITS | Clinical Summary ---
Author Organization [facility] Address [address] [facility] [place] [address] Care Team Providers Care Sql Manager Name Role Phone Juwan Wilks MD Unavailable [phone] Juwan Wilks MD Primary Care Provider [phone] Source Comments [facility],non-owned Affiliates and Associated Physician Practices is amultiple site organization consisting of ambulatory clinics and hospital sitesin [place], [place], [place] and [place]. This disclosure is being madepursuant to the Care Everywhere program and may not contain all information available regarding this patient. Last updated 18.[facility] Allergies No known active allergies [...] (03/18/2017): 01/29/10 Right. Extracorporeal shock wave lithotripsy [facility]. Right ureteral stent. 03/07/10 [facility] : Cystoscopy with removal of stint 01/29/17 [...] Comments Blood Pressure 110/60 11/02/2017 3:35 PM CONSERVATION ASSISTANT Pulse 112 02/26/2017 11:47 AM CDT Temperature [...] car Lifestyle On track( 017 4:16 PM CONSERVATION ASSISTANT) No Nanci Martinez MA Procedures Procedure Name Priority Date/Time Associated Diagnosis Comments CHLAMYDIA + GC AMPLIFIED PROBE STAT 02/26/2017 11:15 AM CDT from Last 3 Months or Most Recently Relevant to Health Maintenance Results * CHLAMYDIA + GC AMPLIFIED PROBE (02/26/2017 11:15 AM CDT) Chlamydia Amplified Probe Negative Negative 02/27/2017 11:40 AM CDT [facility] GC Amplified Probe Negative Negative 02/27/2017 11:40 AM CDT [facility] Microbiology URINE / Unknown 02/26/2017 1 1:15 AM CDT 02/26/2017 11:22 AM CDT Narrative [facility] - 02/27/2017 11:40 AM CDT This test was developed and its performance characteristics determined by the [facility], [facility]. Female urine specimens tested by the [facility] have not been cleared or approved by [...] Adrian Jimenez MD LAB - MICROBIOLOGY ORDERABLES [facility] [address] [place] [address], [facility] [place] [phone] from Last 3 Months or Most Recently Relevant to Health Maintenance Care Teams Sql Manager Relationship Specialty Start Date End Date Juwan Wilks MD PCP - Pediatrics 01/08/10 Juwan Wilks MD [address] [address] PCP - General 02/05/10
--- OUTSIDE RECORDS SUMMARY | 2025-02-20 19:55 | XMS_ITS | Clinical Summary ---
Author Organization [facility] Address [address] [place] [address] Phone Care Team Providers Care Nursing Care Partner Name Role Phone Sohail Duarte MD Primary [...] Comments Blood Pressure 114/74 01/23/2020 1:05 PM PHYSICIST NUCLEAR Pulse 97 01/23/2020 1:05 PM PHYSICIST NUCLEAR Temperature 36.6 C (97.8 F) 01/23/2020 1:05 PM PHYSICIST NUCLEAR Respiratory Rate 16 01/23/2020 1:05 PM PHYSICIST NUCLEAR Oxygen Saturation 100% 01/23/2020 1:05 PM PHYSICIST NUCLEAR Inhaled Oxygen Concentration - - Weight 50.3 kg (111 lb) 01/23/2020 1:05 PM PHYSICIST NUCLEAR Height 160 cm (5' 3 ) 01/23/2020 1:05 PM PHYSICIST NUCLEAR Body Mass Index 19.66 01/23/2020 1:05 PM PHYSICIST NUCLEAR Plan of Treatment Health Maintenance Due Date [...] this topic Medical Devices Explanted Type Area Photogrammetric Stereo Compiler Device Identifier Shelf Expiration Date Model / Serial / Lot Stent Uret Unvfsl [facility]-522-R [id number] - [id number] Implanted:Qty : 1 on 01/06/2018 by Sushant Villavicencio MD at [facility] Explanted:Qty : 1 on 01/20/2018 by Sushant Villavicencio MD at [facility] Stent Right: Ureter COOK- UROLOGY [id number] 08/26/2019 [id number] / / [id number] Stent Uret Unvfsl [facility]-522-R [id number] - [id number] Implanted:Qty : 1 on 01/20/2018 by Sushant Villavicencio MD at [facility] Explanted:Qty : 1 on 01/27/2018 by Sushant Villavicencio MD at [facility] Stent Right: Ureter COOK- UROLOGY [id number] 08/14/2020 [id number] / / [id number] Insurance RX [facility] [employer] RX FERRO PLANS (INTERNAL) [facility] Plans [employer] BLUE ACCESS/TRUE BLUE PPO [employer] BLUE ACCESS/TRUE BLUE PPO Advance Directives For more information, please contact: [phone] * Full Code (Latest Code Status on [...] 3:51 PM 01/07/2018 12:28 PM Care Teams Nursing Care Partner Relationship Specialty Start Date End Date Sohail Duarte MD [address] [place] [address] [place] [address] PCP - General Family Practice 08/16/18
[2025-02-20 19:57] VITALS: BP 112/79; PULSE 120; RESP 20; TEMP 36.3; O2SAT 99
[2025-02-20 19:59] LABS: Lactic Acid Reflex 2.3 mmol/L (0.7-2.0)
[2025-02-20 20:05] LABS: Alanine Aminotransferase 30 U/L (6-35); Albumin Level 5.9 g/dL (3.5-5.1); Alkaline Phosphatase 96 U/L (38-126); Anion Gap 21 mmol/L (4-12); Aspartate Amino Transferase 28 U/L (14-36); Bilirubin,Total 1.2 mg/dL (0.2-1.3); Blood Urea Nitrogen 15 mg/dL (7-17); CRP 0.5 mg/dL (<1.0); Carbon Dioxide 19 mmol/L (22-30); Chloride 101 mmol/L (98-107); Estimated CRCL calculation 65 ml/min; Estimated Glomerular Filt Rate > 60; Glucose 115 mg/dL (65-110); Potassium 3.9 mmol/L (3.4-5.0); Sodium 141 mmol/L (137-145)
[2025-02-20 20:12] LABS: INR 0.9; Prothrombin Time 13.1 Seconds (11.1-14.7); Troponin I < 0.012 ng/mL (0.000-0.034)
[2025-02-20 20:13] LABS: Partial Thromboplastin Time 26.3 Seconds (22.3-36.8)
[2025-02-20 20:17] LABS: Band Neutrophils Percent 3 % (0-6); Lymphocytes Absolute Manual 0.63 K/mm3 (1.1-4.5); Monocytes Absolute Manual 0.84 K/mm3 (0.1-0.90); Monocytes Percent Manual 4 % (3-9); Neutrophils Absolute Manual 19.53 K/mm3 (1.7-7.2); Neutrophils Percent Manual 90 % (46-73); Total Cells Counted 100
[2025-02-20 20:18] LABS: Platelet Clumps Present; Platelet Estimate Adequate (Adequate); Schistocytes None Seen
[2025-02-20 20:26] LABS: Influenza A QL RT-PCR Negative (Negative); Influenza B QL RT-PCR Negative (Negative); RSV RNA, RT-PCR Negative (Negative); SARS-CoV-2 RNA PCR Negative (Negative)
[2025-02-20] MEDS: LACTATED RINGERS 1,000 ML 999 ML IV CONT (20:48)
[2025-02-20 21:14] LABS: BEDSIDEPREGUCG Negative (Negative)
[2025-02-20 21:31] LABS: Add Urine Microscopic? YES; Appearance Urine Clear (Clear); Bacteria Urine None Seen /hpf; Bilirubin Urine Negative (Negative); Blood Urine Negative (Negative); Color Urine Yellow (Yellow); Glucose Urine UA Negative (Negative); Hyaline Casts Urine Present /lpf; Ketones Urine 1+ mg/dL (Negative); Leukocyte Esterase Ur Negative LEU/UL (Negative); Nitrate Urine Negative (Negative); Non Pathogenic Casts >20; Protein Urine 1+ mg/dL (Negative); RBC Urine 0-2 /hpf (0-2); Specific Grav Ur 1.019 (1.001-1.035); Squamous Epithelial Cell Urine None Seen /hpf (Few); Urobilinogen Urine 0.2 mg/dL (<2.0); WBC Urine 0-5 /hpf (0-3); pH Urine 5.5 (5.0-9.0)
[2025-02-20 21:33] VITALS: BP 117/72; PULSE 115; RESP 20; O2SAT 100
[2025-02-20 21:48] LABS: Reflex Lactic Acid Yes or No Add Lactic
[2025-02-20 23:10] VITALS: BP 107/62; PULSE 121; RESP 20; TEMP 37.4; O2SAT 97
== END 2025-02-20 23:14 | disposition home or self-care (01) ==
PROVIDERS: Registered Nurse; Emergency Provider Emergency Medicine
DX: K52.9 Noninfective gastroenteritis and colitis, unspecified (principal); Z20.822 Contact with and (suspected) exposure to COVID-19
CPT/HCPCS: 36415; 71046; 74177; 80053; 81001; 81025; 83605; 84484; 85025; 85610; 85730; 86140; 87637; 93005; 96361; 96374; 99284; J2405; J7030; J7120; Q9967